=== PATIENT | female | born 1945 | race American Indian/Alaskan Native ===

== ENCOUNTER 2021-06-26 16:17 | Emergency (ER) | payer MEDICARE ==
--- NOTE | 2021-06-26 17:45 | Emergency Department Report ---
ED General Adult HPI - General Chief complaint: Recheck/Abnormal Lab/Rx Stated complaint: LOW HEMOGLOBIN Time Seen by Provider: 06/26/21 17:12 Source: patient Mode of arrival: Wheelchair Limitations: No Limitations - History of Present Illness Initial comments: Patient presents to the emergency department via the request of her physician who is Dr. Damon. Patient is a [facility] patient. She states that she was told her hemoglobin was low and was instructed to come to the emergency department immediately. Patient denies any shortness of breath with exertion and denies any blood in her stool. She does complain of being fatigued for the last couple of months. Patient denies chest pain or abdominal pain. -: Sudden Severity scale (0 -10): 0 Improves with: none Worsens with: none Associated Symptoms: denies other symptoms Treatments Prior to Arrival: none - Related Data Previous Rx's Medication Instructions Recorded Last Taken Type Ferrous Sulfate [Ferrous Sulfate 324 mg PO QDAY 30 Days tablet. 06/26/21 Unknown Rx 324 MG] Allergies Allergy/AdvReac Type Severity Reaction Status Date / Time No Known Allergies Allergy Unverified 06/26/21 16:25 ED Review of Systems ROS: Stated complaint: LOW HEMOGLOBIN Other details as noted in HPI Comment: All other systems reviewed and negative Constitutional: denies: chills, fever Eyes: denies: eye pain, eye discharge, vision change ENT: denies: ear pain, throat pain Respiratory: denies: cough, shortness of breath, wheezing Cardiovascular: denies: chest pain, palpitations Endocrine: no symptoms reported Gastrointestinal: denies: abdominal pain, nausea, diarrhea Genitourinary: denies: urgency, dysuria, discharge Musculoskeletal: denies: back pain, joint swelling, arthralgia Skin: denies: rash, lesions Neurological: denies: headache, weakness, paresthesias Psychiatric: denies: anxiety, depression Hematological/Lymphatic: denies: easy bleeding, easy bruising ED Past Medical Hx - Past Medical History Hx Arthritis: Yes Additional medical history: OSTEOPORESIS - Surgical History Additional Surgical History: HAND - Medications Home Medications: Home Medications Medication Instructions Recorded Confirmed Last Taken Type Ferrous Sulfate [Ferrous Sulfate 324 mg PO QDAY 30 Days tablet. 06/26/21 Unknown Rx 324 MG] ED Physical Exam - General Limitations: No Limitations General appearance: alert, in no apparent distress - Head Head exam: Present: atraumatic, normocephalic - Eye Eye exam: Present: normal appearance, PERRL, EOMI - ENT ENT exam: Present: mucous membranes moist - Neck Neck exam: Present: normal inspection - Respiratory Respiratory exam: Present: normal lung sounds bilaterally. Absent: respiratory distress - Cardiovascular Cardiovascular Exam: Present: regular rate, normal rhythm. Absent: systolic murmur, diastolic murmur, rubs, gallop - GI/Abdominal GI/Abdominal exam: Present: soft, normal bowel sounds. Absent: distended, tenderness - Extremities Exam Extremities exam: Present: normal inspection - Back Exam Back exam: Present: normal inspection - Neurological Exam Neurological exam: Present: alert, oriented X3, CN II-XII intact. Absent: motor sensory deficit - Psychiatric Psychiatric exam: Present: normal affect, normal mood - Skin Skin exam: Present: warm, dry, intact, normal color. Absent: rash ED Course Vital Signs 06/26/21 16:29 Temperature 99.6 F Pulse Rate 85 Respiratory 16 Rate Blood Pressure 127/79 O2 Sat by Pulse 100 Oximetry ED Medical Decision Making - Lab Data Result diagrams: 06/26/21 18:17 06/26/21 18:17 Lab Results 06/26/21 06/26/21 06/26/21 Range/Units 18:17 18:17 18:17 WBC 7.8 (4.5-11.0) K/mm3 RBC 4.16 (3.65-5.03) M/mm3 Hgb 7.7 L (10.1-14.3) gm/dl Hct 25.9 L (30.3-42.9) % MCV 62 L (79-97) fl MCH 18 L (28-32) pg MCHC 30 (30-34) % RDW 21.6 H (13.2-15.2) % Plt Count 893 H (140-440) K/mm3 PT 15.5 H (12.2-14.9) Sec. INR 1.11 (0.87-1.13) APTT 33.5 (24.2-36.6) Sec. Sodium 137 (137-145) mmol/L Potassium 4.4 (3.6-5.0) mmol/L Chloride 105.7 (98-107) mmol/L Carbon Dioxide 21 L (22-30) mmol/L Anion Gap 15 mmol/L BUN 17 (7-17) mg/dL Creatinine 0.9 (0.6-1.2) mg/dL Estimated GFR > 60 ml/min BUN/Creatinine Ratio 19 % Glucose 96 (65-100) mg/dL Calcium 8.7 (8.4-10.2) mg/dL Total Bilirubin < 0.20 (0.1-1.2) mg/dL AST 6 (5-40) units/L ALT < 5 L (7-56) units/L Alkaline Phosphatase 93 (35-129) units/L Total Protein 7.5 (6.3-8.2) g/dL Albumin 3.4 L (3.9-5) g/dL Albumin/Globulin Ratio 0.8 % Blood Type 06/26/ Range/Units 18:17 WBC (4.5-11.0) K/mm3 RBC (3.65-5.03) M/mm3 Hgb (10.1-14.3) gm/dl Hct (30.3-42.9) % MCV (79-97) fl MCH (28-32) pg MCHC (30-34) % RDW (13.2-15.2) % Plt Count (140-440) K/mm3 PT (12.2-14.9) Sec. INR (0.87-1.13) APTT (24.2-36.6) Sec. Sodium (137-145) mmol/L Potassium (3.6-5.0) mmol/L Chloride (98-107) mmol/L Carbon Dioxide (22-30) mmol/L Anion Gap mmol/L BUN (7-17) mg/dL Creatinine (0.6-1.2) mg/dL Estimated GFR ml/min BUN/Creatinine Ratio % Glucose (65-100) mg/dL Calcium (8.4-10.2) mg/dL Total Bilirubin (0.1-1.2) mg/dL AST (5-40) units/L ALT (7-56) units/L Alkaline Phosphatase (35-129) units/L Total Protein (6.3-8.2) g/dL Albumin (3.9-5) g/dL Albumin/Globulin Ratio % Blood Type O POSITIVE - Medical Decision Making Discussed results with patient and need to follow-up with her primary care physician at [facility] Critical care attestation.: If time is entered above; I have spent that time in minutes in the direct care of this critically ill patient, excluding procedure time. ED Disposition Clinical Impression: Microcytic anemia Disposition: 01 HOME / SELF CARE / HOMELESS Is pt being admited?: No Does the pt Need Aspirin: No Condition: Stable Instructions: Preventing Iron Deficiency Anemia, Adult Additional Instructions: Return if worse Prescriptions: Ferrous Sulfate [Ferrous Sulfate 324 MG] 324 mg PO QDAY 30 Days tablet. Referrals: [facility] [Primary Care Provider] - 3-5 Days [facility] [Provider Group] - 3-5 Days Time of Disposition: 19:41
[2021-06-26 19:03] LABS: Albumin 3.4 g/dL (3.9-5); BUN/Creatinine Ratio 19; Blood Urea Nitrogen 17 mg/dL (7-17); Calcium 8.7 mg/dL (8.4-10.2); Hemolysis Index 0
[2021-06-26 19:04] LABS: Alanine Aminotransferase < 5 units/L (7-56)
[2021-06-26 19:07] LABS: Hematocrit 25.9 % (30.3-42.9); Hemoglobin 7.7 gm/dl (10.1-14.3); Mean Corpuscular HGB Conc 30 % (30-34); Platelet Count 893 K/mm3 (140-440); Red Blood Count 4.16 M/mm3 (3.65-5.03)
[2021-06-26 19:13] LABS: Mean Corpuscular Volume 62 fl (79-97); Red Cell Distribution Width 21.6 % (13.2-15.2)
[2021-06-26 19:17] LABS: INR 1.11 (0.87-1.13); Partial Thromboplastin Time 33.5 Sec. (24.2-36.6)
[2021-06-26 19:57] VITALS: BP 175/93
[2021-06-26 20:17] LABS: Anisocytosis 1+; Total Cells Counted 100
[2021-06-26 20:18] LABS: Hypochromasia 1+; Schistocytes Rare
== END 2021-06-26 20:08 | disposition home or self-care (01) ==
LOC: ED 16:17
DX: D50.9 Iron deficiency anemia, unspecified (principal); M19.90 Unspecified osteoarthritis, unspecified site; M81.0 Age-related osteoporosis without current pathological fracture; Z98.890 Other specified postprocedural states
CPT/HCPCS: 36415; 80053; 85007; 85025; 85610; 85730; 86850; 86900; 86901; 99283

== ENCOUNTER 2021-07-20 18:51 | Inpatient (IN) | payer MEDICARE ==
[2021-07-20] MEDS ORDERED: SODIUM CHLORIDE 0.9% 1000 ML IV SOLN IV ONE (19:23)
[2021-07-20] MEDS ORDERED: ACETAMINOPHEN 650 MG RECT SUPP PR ONE (19:25)
[2021-07-20 19:47] LABS: Hematocrit 20.2 % (30.3-42.9); Hemoglobin 6.1 gm/dl (10.1-14.3); Mean Corpuscular HGB Conc 30 % (30-34); Platelet Count 615 K/mm3 (140-440); Red Blood Count 3.28 M/mm3 (3.65-5.03)
--- NOTE | 2021-07-20 19:47 | XRay Report ---
XR chest 1V ap INDICATION / CLINICAL INFORMATION: fever. COMPARISON: None available. FINDINGS: SUPPORT DEVICES: None. HEART /PULMONARY VASCULATURE: No significant abnormality. LUNGS / PLEURA: Diffuse increased interstitial opacities are present. There is mild patchy airspace o pacity within the left midlung. No sizable pleural effusion. No pneumothorax. ADDITIONAL FINDINGS: Dextroscoliosis of the thoracic spine noted. 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 No acute osseous findings. IMPRESSION: Patchy airspace opacity within the left midlung, suspicious for pneumonia. Signer Name: Stuart Millan MD Signed: 07/20/2021 7:43 PM Workstation Name: [id number]
[2021-07-20 20:00] LABS: Mean Corpuscular Volume 62 fl (79-97); Red Cell Distribution Width 20.6 % (13.2-15.2)
[2021-07-20] MEDS ORDERED: CEFEPIME/NS 1 GM/100 ML 1 GM/100 ML BAG IV ONE (20:06)
[2021-07-20 20:11] LABS: Albumin 2.6 g/dL (3.9-5); Blood Urea Nitrogen 11 mg/dL (7-17); Calcium 7.9 mg/dL (8.4-10.2); Hemolysis Index 0
[2021-07-20 20:14] LABS: Alanine Aminotransferase < 5 units/L (7-56); BUN/Creatinine Ratio 16; Bilirubin,Direct < 0.2 mg/dL (0-0.2)
--- NOTE | 2021-07-20 20:17 | Emergency Department Report ---
ED Altered Mental Status HPI - General Chief Complaint: Altered Mental Status Stated Complaint: POSS SEPSIS Time Seen by Provider: 07/20/21 19:18 Source: EMS Mode of arrival: Stretcher Limitations: Physical Limitation - History of Present Illness Initial Comments: 76-year-old female presents to ED with weakness and altered mental status. Per EMS family reported that patient has been lethargic and laying around for couple of days. Urinary incontinence is reported. EMS states patient had a fever of 102. Here in the ED patient is slow to respond. She denies any pain. She does report that she has had some urinary frequency the last few days. Patient states she lives with a friend. Unable to reach anyone at the phone numbers that have been provided. Patient reports she has received her COVID-19 vaccine. MD Complaint: altered mental status -: days(s) (2) Severity: Unable to Determine Consistency of Symptoms: constant Context: recent fever Associated Symptoms: fever/chills, incontinence. denies: chest pain, cough, headaches, nausea/vomiting, shortness of breath - Related Data Previous Rx's Medication Instructions Recorded Last Taken Type Ferrous Sulfate [Ferrous Sulfate 324 mg PO QDAY 30 Days tablet. 06/26/21 Unknown Rx 324 MG] Allergies Allergy/AdvReac Type Severity Reaction Status Date / Time No Known Allergies Allergy Verified 07/20/21 19:01 ED Review of Systems ROS: Stated complaint: POSS SEPSIS Other details as noted in HPI Comment: All other systems reviewed and negative Constitutional: fever, weakness Respiratory: denies: shortness of breath Cardiovascular: denies: chest pain Gastrointestinal: denies: abdominal pain, vomiting, diarrhea Genitourinary: frequency ED Past Medical Hx - Past Medical History Hx Hypertension: Yes Hx Arthritis: Yes Hx COPD: Yes Additional medical history: OSTEOPORESIS - Surgical History Past Surgical History?: Yes Additional Surgical History: HAND - Social History Smoking Status: Unknown if ever smoked Substance Use Type: None - Medications Home Medications: Home Medications Medication Instructions Recorded Confirmed Last Taken Type Ferrous Sulfate [Ferrous Sulfate 324 mg PO QDAY 30 Days tablet. 06/26/21 Unknown Rx 324 MG] ED Physical Exam - General Limitations: Physical Limitation General appearance: alert, in no apparent distress - Head Head exam: Present: atraumatic, normocephalic - Eye Eye exam: Present: normal appearance, EOMI - ENT ENT exam: Present: mucous membranes dry - Neck Neck exam: Present: normal inspection - Respiratory Respiratory exam: Present: normal lung sounds bilaterally. Absent: respiratory distress - Cardiovascular Cardiovascular Exam: Present: normal rhythm, tachycardia - GI/Abdominal GI/Abdominal exam: Present: soft. Absent: distended, tenderness - Extremities Exam Extremities exam: Present: normal inspection - Neurological Exam Neurological exam: Present: alert, oriented X3, other (Responses are slow). Absent: motor sensory deficit - Psychiatric Psychiatric exam: Present: normal affect, normal mood - Skin Skin exam: Present: warm, dry, intact, normal color ED Course Vital Signs 07/20/21 07/20/21 07/20/21 19:20 19:27 19:30 Temperature 103.0 F H Pulse Rate 115 H Respiratory 20 Rate Blood Pressure 138/78 132/74 Blood Pressure 138/78 [Right] O2 Sat by Pulse 100 100 100 Oximetry 07/20/21 07/20/21 07/20/21 19:45 20:00 20:15 Temperature Pulse Rate Respiratory Rate Blood Pressure 121/82 132/67 127/71 Blood Pressure [Right] O2 Sat by Pulse 98 99 99 Oximetry 07/20/21 07/20/21 07/20/21 20:30 20:45 21:00 Temperature Pulse Rate 113 H 109 H 108 H Respiratory 17 15 18 Rate Blood Pressure 126/75 119/68 110/63 Blood Pressure [Right] O2 Sat by Pulse 100 97 97 Oximetry 07/20/21 07/20/21 07/20/21 21:15 21:24 21:30 Temperature 98.9 F Pulse Rate 109 H 105 H Respiratory 12 19 Rate Blood Pressure 111/66 104/59 Blood Pressure [Right] O2 Sat by Pulse 100 97 Oximetry 07/20/21 21:45 Temperature Pulse Rate 105 H Respiratory 23 Rate Blood Pressure 104/58 Blood Pressure [Right] O2 Sat by Pulse 100 Oximetry - Consultations Consultation #1: 07/20/21 20:53 Spoke with [facility] on-call physician, Dr. Estephania Victor. States okay for patient to remain here at [facility] for admission. - Lab Data Result diagrams: 07/20/21 19:28 07/20/21 19:28 Lab Results 07/20/21 07/20/21 07/20/21 Range/Units 19:28 19:28 19:28 WBC 18.4 H (4.5-11.0) K/mm3 RBC 3.28 L (3.65-5.03) M/mm3 Hgb 6.1 L (10.1-14.3) gm/dl Hct 20.2 L (30.3-42.9) % MCV 62 L (79-97) fl MCH 19 L (28-32) pg MCHC 30 (30-34) % RDW 20.6 H (13.2-15.2) % Plt Count 615 H (140-440) K/mm3 Add Manual Diff Complete Total Counted 100 Seg Neutrophils % Lacquer Maker Lymphocytes % (Manual) 2.0 L (13.4-35.0) % Nucleated RBC % Not Reportable Seg Neutrophils # Man 18.0 H (1.8-7.7) K/mm3 Band Neutrophils # 0.0 K/mm3 Lymphocytes # (Manual) 0.4 L (1.2-5.4) K/mm3 Abs React Lymphs (Man) 0.0 K/mm3 Monocytes # (Manual) 0.0 (0.0-0.8) K/mm3 Eosinophils # (Manual) 0.0 (0.0-0.4) K/mm3 Basophils # (Manual) 0.0 (0.0-0.1) K/mm3 Metamyelocytes # 0.0 K/mm3 Myelocytes # 0.0 K/mm3 Promyelocytes # 0.0 K/mm3 Blast Cells # 0.0 K/mm3 WBC Morphology Not Reportable Hypersegmented Neuts Not Reportable Hyposegmented Neuts Not Reportable Hypogranular Neuts Not Reportable Smudge Cells Not Reportable Toxic Granulation Not Reportable Toxic Vacuolation Not Reportable Dohle Bodies Not Reportable Pelger-Huet Anomaly Not Reportable Bishop Rods Not Reportable Platelet Estimate Consistent w auto Clumped Platelets Not Reportable Plt Clumps, EDTA Not Reportable Large Platelets Not Reportable Giant Platelets Not Reportable Platelet Satelliting Not Reportable Plt Morphology Comment Not Reportable RBC Morphology Not Reportable Dimorphic RBCs Not Reportable Polychromasia Not Reportable Hypochromasia 2+ Poikilocytosis Not Reportable Anisocytosis 1+ Microcytosis 2+ Macrocytosis Not Reportable Spherocytes Not Reportable Pappenheimer Bodies Not Reportable Sickle Cells Not Reportable Target Cells 2+ Tear Drop Cells Rare Ovalocytes Not Reportable Helmet Cells Not Reportable Chance-Ainsworth Bodies Not Reportable [place] Rings Not Reportable Sophie Cells Not Reportable Bite Cells Not Reportable Crenated Cell Not Reportable Elliptocytes Not Reportable Acanthocytes (Spur) Not Reportable Rouleaux Not Reportable Hemoglobin C Crystals Not Reportable Schistocytes Not Reportable Malaria parasites Not Reportable Randolph Bodies Not Reportable Hem Pathologist Commnt No Sodium 132 L (137-145) mmol/L Potassium 3.1 L (3.6-5.0) mmol/L Chloride 101.7 (98-107) mmol/L Carbon Dioxide 17 L (22-30) mmol/L Anion Gap 16 mmol/L BUN 11 (7-17) mg/dL Creatinine 0.7 (0.6-1.2) mg/dL Estimated GFR > 60 ml/min BUN/Creatinine Ratio 16 % Glucose 117 H (65-100) mg/dL Lactic Acid 1.60 (0.7-2.0) mmol/L Calcium 7.9 L (8.4-10.2) mg/dL Total Bilirubin 0.30 (0.1-1.2) mg/dL Direct Bilirubin < 0.2 (0-0.2) mg/dL Indirect Bilirubin 0.1 mg/dL AST 6 (5-40) units/L ALT < 5 L (7-56) units/L Alkaline Phosphatase 86 (35-129) units/L Total Protein 6.0 L (6.3-8.2) g/dL Albumin 2.6 L (3.9-5) g/dL Albumin/Globulin Ratio 0.8 % Urine Color (Yellow) Urine Turbidity (Clear) Urine pH (5.0-7.0) Ur Specific [place] (1.003-1.030) Urine Protein (Negative) mg/dL Urine Glucose (UA) (Negative) mg/dL Urine Ketones (Negative) mg/dL Urine Blood (Negative) Urine Nitrite (Negative) Urine Bilirubin (Negative) Urine Urobilinogen (<2.0) mg/dL Ur Leukocyte Esterase (Negative) Urine WBC (Auto) (0.0-6.0) /HPF Urine RBC (Auto) (0.0-6.0) /HPF U Epithel Cells (Auto) (0-13.0) /HPF Urine Bacteria (Auto) (Negative) /HPF Urine Mucus /HPF Blood Type Antibody Screen Crossmatch 07/20/21 07/20/21 Range/Units 20:00 20:15 WBC (4.5-11.0) K/mm3 RBC (3.65-5.03) M/mm3 Hgb (10.1-14.3) gm/dl Hct (30.3-42.9) % MCV (79-97) fl MCH (28-32) pg MCHC (30-34) % RDW (13.2-15.2) % Plt Count (140-440) K/mm3 Add Manual Diff Total Counted Seg Neutrophils % Lymphocytes % (Manual) (13.4-35.0) % Nucleated RBC % Seg Neutrophils # Man (1.8-7.7) K/mm3 Band Neutrophils # K/mm3 Lymphocytes # (Manual) (1.2-5.4) K/mm3 Abs React Lymphs (Man) K/mm3 Monocytes # (Manual) (0.0-0.8) K/mm3 Eosinophils # (Manual) (0.0-0.4) K/mm3 Basophils # (Manual) (0.0-0.1) K/mm3 Metamyelocytes # K/mm3 Myelocytes # K/mm3 Promyelocytes # K/mm3 Blast Cells # K/mm3 WBC Morphology Hypersegmented Neuts Hyposegmented Neuts Hypogranular Neuts Smudge Cells Toxic Granulation Toxic Vacuolation Dohle Bodies Pelger-Huet Anomaly Bishop Rods Platelet Estimate Clumped Platelets Plt Clumps, EDTA Large Platelets Giant Platelets Platelet Satelliting Plt Morphology Comment RBC Morphology Dimorphic RBCs Polychromasia Hypochromasia Poikilocytosis Anisocytosis Microcytosis Macrocytosis Spherocytes Pappenheimer Bodies Sickle Cells Target Cells Tear Drop Cells Ovalocytes Helmet Cells Chance-Ainsworth Bodies [place] Rings Sophie Cells Bite Cells Crenated Cell Elliptocytes Acanthocytes (Spur) Rouleaux Hemoglobin C Crystals Schistocytes Malaria parasites Randolph Bodies Hem Pathologist Commnt Sodium (137-145) mmol/L Potassium (3.6-5.0) mmol/L Chloride (98-107) mmol/L Carbon Dioxide (22-30) mmol/L Anion Gap mmol/L BUN (7-17) mg/dL Creatinine (0.6-1.2) mg/dL Estimated GFR ml/min BUN/Creatinine Ratio % Glucose (65-100) mg/dL Lactic Acid (0.7-2.0) mmol/L Calcium (8.4-10.2) mg/dL Total Bilirubin (0.1-1.2) mg/dL Direct Bilirubin (0-0.2) mg/dL Indirect Bilirubin mg/dL AST (5-40) units/L ALT (7-56) units/L Alkaline Phosphatase (35-129) units/L Total Protein (6.3-8.2) g/dL Albumin (3.9-5) g/dL Albumin/Globulin Ratio % Urine Color Yellow (Yellow) Urine Turbidity Slightly-cloudy (Clear) Urine pH 6.0 (5.0-7.0) Ur Specific [place] 1.013 (1.003-1.030) Urine Protein 30 mg/dl (Negative) mg/dL Urine Glucose (UA) Neg (Negative) mg/dL Urine Ketones Neg (Negative) mg/dL Urine Blood Sm (Negative) Urine Nitrite Neg (Negative) Urine Bilirubin Neg (Negative) Urine Urobilinogen 2.0 (<2.0) mg/dL Ur Leukocyte Esterase Tr (Negative) Urine WBC (Auto) 35.0 H (0.0-6.0) /HPF Urine RBC (Auto) 2.0 (0.0-6.0) /HPF U Epithel Cells (Auto) 1.0 (0-13.0) /HPF Urine Bacteria (Auto) 2+ (Negative) /HPF Urine Mucus Few /HPF Blood Type O POSITIVE Antibody Screen Negative Crossmatch See Detail - Radiology Data Radiology results: report reviewed, image reviewed - Medical Decision Making 76-year-old female presents to ED with altered mental status and urinary incontinence at home. Patient found to be febrile with a temp of 103 here in the ED. Patient was initially very drowsy and lethargic, however after receiving some IV fluids her mental status did appear to improve. Patient was able to answer questions appropriately, stating that she has been having some urinary frequency over the past couple of days. Patient has leukocytosis with WBC of 18. Lactic acid is normal. UA shows evidence of UTI. Chest x-ray shows possible pneumonia. O2 sats are normal, patient is in no respiratory distress. Cultures drawn, cefepime given. Patient had an ED visit approximately 3 weeks ago she was instructed to come to the ER because blood work done by PCP showed that she was anemic. At that time patient had a hemoglobin of 7.7 and did not require any transfusion at that time. During that visit, patient denied any rectal bleeding. Today hemoglobin is 6.1. Type and screen ordered, no transfusion ordered at this time. Will defer to hospitalist team. Vital signs are stable. Patient will be admitted by hospitalist, Dr. Almanza, for further management. Patient is a [facility] patient, however I have spoken with the [facility] physician who states patient should stay here at [facility] for admission. - Differential Diagnosis UTI, dehydration, pneumonia Critical care attestation.: If time is entered above; I have spent that time in minutes in the direct care of this critically ill patient, excluding procedure time. ED Disposition Clinical Impression: UTI (urinary tract infection), Sepsis, Pneumonia, Acute encephalopathy, Hypokalemia, Anemia Disposition: ADMITTED INPATIENT Is pt being admited?: Yes Condition: Stable Instructions: Bacterial Pneumonia (ED) Time of Disposition: 21:24
[2021-07-20 20:29] LABS: Bacteria,Urine 2+ /HPF (Negative); Bilirubin,Urine NEG (Negative); Blood,Urine SM (Negative); Color,Urine Yellow (Yellow); Mucus,Urine FEW /HPF
[2021-07-20] MEDS ORDERED: POTASSIUM CHLORIDE ER 20 MEQ TAB PO ONE (20:54)
--- NOTE | 2021-07-20 22:23 | History and Physical Report ---
History of Present Illness Date of examination: 07/20/21 Date of admission: 07/20/21 Chief complaint: shortness of breath History of present illness: This is a 76-year-old female seen in ED at bedside. She presents to ED with weakness and altered mental status. Per EMS, family reported that patient has been lethargic and laying around for couple of days. Urinary incontinence is reported. EMS states patient had a fever of 102. On assessment, patient is awake appears mildly confused, was unable to get most of the pertinent information. she denies chest pain, nausea vomiting, and abdominal pain at this time of assessment. I reviewed medication record, history, and vital signs. Patient has UTI. Chest x-ray shows pneumonia. Patient started on antibiotics. Patient reports she has received her COVID-19 vaccine Past History Past Medical History: hypertension Past Surgical History: No surgical history Social history: lives with family. denies: smoking, alcohol abuse, prescription drug abuse, IV drug use, full code Medications and Allergies Allergies Allergy/AdvReac Type Severity Reaction Status Date / Time No Known Allergies Allergy Verified 07/20/21 19:01 Home Medications Medication Instructions Recorded Confirmed Last Taken Type Ferrous Sulfate [Ferrous Sulfate 324 mg PO QDAY 30 Days tablet. 06/26/21 Unknown Rx 324 MG] Review of Systems Constitutional: no fatigue, no weakness Ears, nose, mouth and throat: no epistaxis, no bleeding gums Cardiovascular: high blood pressure Respiratory: no congestion, no wheezing Gastrointestinal: no melena Rectal: no itching, no hemorrhoids Integumentary: no rash, no pruritis, no redness Psychiatric: disorientation Hematologic/Lymphatic: no easy bruising, no easy bleeding, no lymphadenopathy, no lymphedema Allergic/Immunologic: no urticaria Exam - Constitutional Vitals: Temp Pulse Resp BP Pulse Ox 98.9 F 105 H 23 104/58 100 07/20/21 21:24 07/20/21 21:45 07/20/21 21:45 07/20/21 21:45 07/20/21 21:45 General appearance: Present: no acute distress, well-nourished - EENT Eyes: Present: PERRL ENT: hearing intact, clear oral mucosa - Neck Neck: Present: supple, normal ROM - Respiratory Respiratory effort: normal Respiratory: bilateral: CTA - Cardiovascular Heart Sounds: Present: S1 & S2. Absent: rub, click - Extremities Extremities: pulses symmetrical, No edema Peripheral Pulses: within normal limits - Abdominal General gastrointestinal: Present: soft, non-tender, non-distended, normal bowel sounds Female genitourinary: Present: normal - Integumentary Integumentary: Present: clear, warm, dry - Musculoskeletal Musculoskeletal: gait normal, strength equal bilaterally - Psychiatric Psychiatric: appropriate mood/affect, intact judgment & insight, cooperative, other (Appears confused) - Neurologic Neurologic: CNII-XII intact, moves all extremities - Allied Health Allied health notes reviewed: nursing Results - Labs CBC & Chem 7: 07/20/21 19:28 07/20/21 19:28 Labs: Abnormal lab results 07/20/21 07/20/21 07/20/21 Range/Units 19:28 19:28 20:00 WBC 18.4 H (4.5-11.0) K/mm3 RBC 3.28 L (3.65-5.03) M/mm3 Hgb 6.1 L (10.1-14.3) gm/dl Hct 20.2 L (30.3-42.9) % MCV 62 L (79-97) fl MCH 19 L (28-32) pg RDW 20.6 H (13.2-15.2) % Plt Count 615 H (140-440) K/mm3 Sodium 132 L (137-145) mmol/L Potassium 3.1 L (3.6-5.0) mmol/L Carbon Dioxide 17 L (22-30) mmol/L Glucose 117 H (65-100) mg/dL Calcium 7.9 L (8.4-10.2) mg/dL ALT < 5 L (7-56) units/L Total Protein 6.0 L (6.3-8.2) g/dL Albumin 2.6 L (3.9-5) g/dL Urine WBC (Auto) 35.0 H (0.0-6.0) /HPF Assessment and Plan - Patient Problems (1) Acute encephalopathy Current Visit: No Status: Inactive Plan to address problem: Likely secondary to UTI Monitor mental status Safety and fall precaution at all time PT OT consult (2) Anemia Current Visit: No Status: Inactive Plan to address problem: Patient is typed and crossed for 1 unit Transfuse 1 unit of packed red blood cells Monitor H&H Iron and multivitamin supplement Occult stool rule out GI bleed (3) Hypokalemia Current Visit: No Status: Inactive Plan to address problem: Replace potassium Monitor electrolytes levels and replace as needed Check magnesium (4) Pneumonia Current Visit: No Status: Inactive Plan to address problem: Respiratory care Bronchodilator and oxygen supplement if needed Empiric antibiotic Blood culture x2 and urine culture (5) Sepsis Current Visit: No Status: Inactive Plan to address problem: Likely secondary to pneumonia and the UTI Patient is antibiotic Blood culture urine culture have been ordered Infectious disease consultedfollow-up with plan of care (6) UTI (urinary tract infection) Current Visit: No Status: Inactive Plan to address problem: Urine culture Empiric antibiotic (7) Leukocytosis (leucocytosis) Current Visit: Yes Status: Acute Plan to address problem: Monitor WBC Gentle IV hydration Blood culture in progress (8) DVT prophylaxis Current Visit: Yes Status: Acute Plan to address problem: lovenox
[2021-07-20] MEDS ORDERED: SODIUM CHLORIDE 0.9% 500 ML 500 ML IV ONE (22:33)
[2021-07-20] MEDS ORDERED: ALUM-MAG HYDROXIDE-SIMETHICONE 200-200-20MG/5ML ORAL LIQD 30 ML PO PRN (22:40)
[2021-07-20] MEDS ORDERED: HYDROmorphone 1 MG/1 ML INJ IV PRN (22:40)
[2021-07-20] MEDS ORDERED: NALOXONE 0.4 MG/1 ML INJ IV PRN (22:40)
[2021-07-20] MEDS ORDERED: SENNOSIDES 8.6 MG TAB PO PRN (22:40)
[2021-07-20] MEDS ORDERED: MAGNESIUM HYDROXIDE (MOM) ORAL LIQD UDC PO PRN (22:40)
[2021-07-20] MEDS ORDERED: ONDANSETRON 4 MG/2 ML INJ IV PRN (22:40)
[2021-07-20] MEDS ORDERED: oxyCODONE /ACETAMINOPHEN 5-325MG TAB PO PRN (22:40)
[2021-07-20] MEDS ORDERED: ACETAMINOPHEN 325 MG TAB PO PRN ×2 (22:40)
[2021-07-20] MEDS ORDERED: AZITHROMYCIN/NS 500 MG/250 ML 500 MG/250 ML BAG IV SCH (23:00)
[2021-07-20 23:33] LABS: Total Cells Counted 100
[2021-07-20 23:39] LABS: Anisocytosis 1+; Hypochromasia 2+
[2021-07-20 23:41] LABS: Platelet Estimate Consistent w Auto; Target Cells 2+; Tear Drop Cells Rare
[2021-07-21] MEDS ORDERED: SODIUM CHLORIDE 0.9% 500 ML 500 ML ONE (00:58)
[2021-07-21] MEDS ORDERED: SODIUM CHLORIDE 0.9% 500 ML 500 ML IV NR (08:11)
--- NOTE | 2021-07-21 08:17 | Progress Note ---
Assessment and Plan Assessment and plan: Sepsis. Patient meets criteria given the tachycardia, fever and diagnosis of pneumonia/UTI. Left lower lobe pneumonia. Chest x-ray reveals left-sided pneumonia. UTI. Toxic metabolic encephalopathy. Etiology secondary to above. Anemia. Etiology is unknown. Hypokalemia. 07/21/2021. Continue IV antibiotics and follow-up blood and urine cultures. We Will transfuse 2 units of PRBCs for anemia. Check iron studies, reticulocyte count and LDH. Check Hemoccult of stool. Replete potassium for hypokalemia. History Interval history: No new issues overnight Hospitalist Physical - Constitutional Vitals: Temp Pulse Resp BP Pulse Ox 98.1 F 89 16 149/85 100 07/21/21 04:20 07/21/21 04:30 07/21/21 04:30 07/21/21 04:30 07/21/21 04:30 General appearance: Present: no acute distress, well-nourished - EENT Eyes: Present: PERRL, EOM intact ENT: hearing intact, clear oral mucosa, dentition normal - Neck Neck: Present: supple, normal ROM - Respiratory Respiratory effort: normal Respiratory: bilateral: CTA - Cardiovascular Rhythm: regular Heart Sounds: Present: S1 & S2. Absent: gallop, rub - Extremities Extremities: no ischemia, No edema, Full ROM - Abdominal General gastrointestinal: soft, non-tender, non-distended, normal bowel sounds - Integumentary Integumentary: Present: clear, warm, dry - Neurologic Neurologic: CNII-XII intact, moves all extremities Results - Labs CBC & Chem 7: 07/20/21 19:28 07/20/21 19:28 Labs: Laboratory Last Values WBC 18.4 K/mm3 (4.5-11.0) H 07/20/21 19:28 RBC 3.28 M/mm3 (3.65-5.03) L 07/20/21 19:28 Hgb 6.1 gm/dl (10.1-14.3) L 07/20/21 19:28 Hct 20.2 % (30.3-42.9) L 07/20/21 19:28 MCV 62 fl (79-97) L 07/20/21 19:28 MCH 19 pg (28-32) L 07/20/21 19:28 MCHC 30 % (30-34) 07/20/21 19:28 RDW 20.6 % (13.2-15.2) H 07/20/21 19:28 Plt Count 615 K/mm3 (140-440) H 07/20/21 19:28 Add Manual Diff Complete 07/20/21 19:28 Total Counted 100 07/20/21 19:28 Seg Neutrophils % Bike Designer 07/20/21 19:28 Lymphocytes % (Manual) 2.0 % (13.4-35.0) L 07/20/21 19:28 Nucleated RBC % Not Reportable 07/20/21 19:28 Seg Neutrophils # Man 18.0 K/mm3 (1.8-7.7) H 07/20/21 19:28 Band Neutrophils # 0.0 K/mm3 07/20/21 19:28 Lymphocytes # (Manual) 0.4 K/mm3 (1.2-5.4) L 07/20/21 19:28 Abs React Lymphs (Man) 0.0 K/mm3 07/20/21 19:28 Monocytes # (Manual) 0.0 K/mm3 (0.0-0.8) 07/20/21 19:28 Eosinophils # (Manual) 0.0 K/mm3 (0.0-0.4) 07/20/21 19:28 Basophils # (Manual) 0.0 K/mm3 (0.0-0.1) 07/20/21 19:28 Metamyelocytes # 0.0 K/mm3 07/20/21 19:28 Myelocytes # 0.0 K/mm3 07/20/21 19:28 Promyelocytes # 0.0 K/mm3 07/20/21 19:28 Blast Cells # 0.0 K/mm3 07/20/21 19:28 WBC Morphology Not Reportable 07/20/21 19:28 Hypersegmented Neuts Not Reportable 07/20/21 19:28 Hyposegmented Neuts Not Reportable 07/20/21 19:28 Hypogranular Neuts Not Reportable 07/20/21 19:28 Smudge Cells Not Reportable 07/20/21 19:28 Toxic Granulation Not Reportable 07/20/21 19:28 Toxic Vacuolation Not Reportable 07/20/21 19:28 Dohle Bodies Not Reportable 07/20/21 19:28 Pelger-Huet Anomaly Not Reportable 07/20/21 19:28 [place] Rods Not Reportable 07/20/21 19:28 Platelet Estimate Consistent w auto 07/20/21 19:28 Clumped Platelets Not Reportable 07/20/21 19:28 Plt Clumps, EDTA Not Reportable 07/20/21 19:28 Large Platelets Not Reportable 07/20/21 19:28 Giant Platelets Not Reportable 07/20/21 19:28 Platelet Satelliting Not Reportable 07/20/21 19:28 Plt Morphology Comment Not Reportable 07/20/21 19:28 RBC Morphology Not Reportable 07/20/21 19:28 Dimorphic RBCs Not Reportable 07/20/21 19:28 Polychromasia Not Reportable 07/20/21 19:28 Hypochromasia 2+ 07/20/21 19:28 Poikilocytosis Not Reportable 07/20/21 19:28 Anisocytosis 1+ 07/20/21 19:28 Microcytosis 2+ 07/20/21 19:28 Macrocytosis Not Reportable 07/20/21 19:28 Spherocytes Not Reportable 07/20/21 19:28 Pappenheimer Bodies Not Reportable 07/20/21 19:28 Sickle Cells Not Reportable 07/20/21 19:28 Target Cells 2+ 07/20/21 19:28 Tear Drop Cells Rare 07/20/21 19:28 Ovalocytes Not Reportable 07/20/21 19:28 Helmet Cells Not Reportable 07/20/21 19:28 [place] Bodies Not Reportable 07/20/21 19:28 [place] Rings Not Reportable 07/20/21 19:28 [place] Cells Not Reportable 07/20/21 19:28 Bite Cells Not Reportable 07/20/21 19:28 Crenated Cell Not Reportable 07/20/21 19:28 Elliptocytes Not Reportable 07/20/21 19:28 Acanthocytes (Spur) Not Reportable 07/20/21 19:28 Rouleaux Not Reportable 07/20/21 19:28 Hemoglobin C Crystals Not Reportable 07/20/21 19:28 Schistocytes Not Reportable 07/20/21 19:28 Malaria parasites Not Reportable 07/20/21 19:28 Randolph Bodies Not Reportable 07/20/21 19:28 Hem Pathologist Commnt No 07/20/21 19:28 Sodium 132 mmol/L (137-145) L 07/20/21 19:28 Potassium 3.1 mmol/L (3.6-5.0) L 07/20/21 19:28 Chloride 101.7 mmol/L (98-107) 07/20/21 19:28 Carbon Dioxide 17 mmol/L (22-30) L 07/20/21 19:28 Anion Gap 16 mmol/L 07/20/21 19:28 BUN 11 mg/dL (7-17) 07/20/21 19:28 Creatinine 0.7 mg/dL (0.6-1.2) 07/20/21 19:28 Estimated GFR > 60 ml/min 07/20/21 19: BUN/Creatinine Ratio 16 % 07/20/21 19:28 Glucose 117 mg/dL (65-100) H 07/20/21 19:28 Hemoglobin A1c 4.6 % (4-6) 07/20/21 19:28 Lactic Acid 1.60 mmol/L (0.7-2.0) 07/20/21 19:28 Calcium 7.9 mg/dL (8.4-10.2) L 07/20/21 19:28 Total Bilirubin 0.30 mg/dL (0.1-1.2) 07/20/21 19:28 Direct Bilirubin < 0.2 mg/dL (0-0.2) 07/20/21 19:28 Indirect Bilirubin 0.1 mg/dL 07/20/21 19:28 AST 6 units/L (5-40) 07/20/21 19:28 ALT < 5 units/L (7-56) L 07/20/21 19:28 Alkaline Phosphatase 86 units/L (35-129) 07/20/21 19:28 Total Protein 6.0 g/dL (6.3-8.2) L 07/20/21 19:28 Albumin 2.6 g/dL (3.9-5) L 07/20/21 19:28 Albumin/Globulin Ratio 0.8 % 07/20/21 19:28 Urine Color Yellow (Yellow) 07/20/21 20:00 Urine Turbidity Slightly-cloudy (Clear) 07/20/21 20:00 Urine pH 6.0 (5.0-7.0) 07/20/21 20:00 Ur Specific [place] 1.013 (1.003-1.030) 07/20/21 20:00 Urine Protein 30 mg/dl mg/dL (Negative) 07/20/21 20:00 Urine Glucose (UA) Neg mg/dL (Negative) 07/20/21 20:00 Urine Ketones Neg mg/dL (Negative) 07/20/21 20:00 Urine Blood Sm (Negative) 07/20/21 20:00 Urine Nitrite Neg (Negative) 07/20/21 20:00 Urine Bilirubin Neg (Negative) 07/20/21 20:00 Urine Urobilinogen 2.0 mg/dL (<2.0) 07/20/21 20:00 Ur Leukocyte Esterase Tr (Negative) 07/20/21 20:00 Urine WBC (Auto) 35.0 /HPF (0.0-6.0) H 07/20/21 20:00 Urine RBC (Auto) 2.0 /HPF (0.0-6.0) 07/20/21 20:00 U Epithel Cells (Auto) 1.0 /HPF (0-13.0) 07/20/21 20:00 Urine Bacteria (Auto) 2+ /HPF (Negative) 07/20/21 20:00 Urine Mucus Few /HPF 07/20/21 20:00 Blood Type O POSITIVE 07/20/21 20:15 Antibody Screen Negative 07/20/21 20:15 Crossmatch See Detail 07/20/21 20:15 Microbiology: Microbiology 07/20/21 19:28 Peripheral/Venous Blood Culture - Preliminary Culture in Progress 07/20/21 19:28 Peripheral/Venous Blood Culture - Preliminary Culture in Progress Active Medications - Current Medications Current Medications: Generic Name Dose Route Start Last Admin Trade Name Freq PRN Reason Stop Dose Admin Acetaminophen 650 mg 07/20/21 22:40 Acetaminophen 325 Mg Tab PO Q4H PRN Pain MILD(1-3)/Fever >100.5/CHRISTIANSEN Al Hydrox/Mg Hydrox/Simethicone 30 ml 07/20/21 22:40 Alum-Mag Hydroxide-Simethicone [id number]/5ml Oral Liqd 30 Ml PO Q4H PRN Indigestion Famotidine 20 mg 07/21/21 10:00 Famotidine 20 Mg/2 Ml Inj IV BID [facility] Ferrous Sulfate 325 mg 07/21/21 10:00 Ferrous Sulfate 325 Mg Tab PO QDAY [facility] Heparin Sodium (Porcine) 5,000 unit 07/21/21 10:00 Heparin 5,000 Unit/1 Ml Vial SUB-Q Q12HR [facility] Hydralazine HCl 5 mg 07/21/21 06:26 Hydralazine 20 Mg/1 Ml Inj IV Q4H PRN Hypertension Hydromorphone HCl 0.25 mg 07/20/21 22:40 Hydromorphone 1 Mg/1 Ml Inj IV Q4H PRN Pain, Moderate (4-6) Ceftriaxone Sodium 1 gm in 50 mls @ 100 mls/hr 07/21/21 10:00 Rocephin/Ns 1 Gm/50 Ml IV 07/25/21 10:29 Q24HR [facility] Protocol Sodium Chloride 1,000 mls @ 75 mls/hr 07/20/21 22:45 Nacl 0.9% 1000 Ml IV DIRECT [facility] Azithromycin 500 mg in 250 mls @ 250 mls/hr 07/21/21 22:00 Zithromax/Ns IV 07/24/21 22:59 QHS [facility] Sodium Chloride 500 mls @ 0 mls/hr 07/21/21 08:11 Nacl 0.9% 500 Ml IV 07/21/21 08:12 ONCE ONE As Directed Magnesium Hydroxide 30 ml 07/20/21 22:40 Magnesium Hydroxide (Mom) Oral Liqd Udc PO Q4H PRN Constipation Multivitamins 1 each 07/21/21 10:00 Multivitamins ,Therapeutic Tab PO QDAY [facility] Naloxone HCl 0.1 mg 07/20/21 22:40 Naloxone 0.4 Mg/1 Ml Inj IV Q2MIN PRN Res Rate </= 8 or 02 SAT < 92% Ondansetron HCl 4 mg 07/20/21 22:40 Ondansetron 4 Mg/2 Ml Inj IV Q8H PRN Nausea And Vomiting Oxycodone/Acetaminophen 1 tab 07/20/21 22:40 Oxycodone /Acetaminophen 5-325mg Tab PO Q6H PRN Pain, Moderate (4-6) Senna 8.6 mg 07/20/21 22:40 Sennosides 8.6 Mg Tab PO Q12HR PRN Constipation Sodium Chloride 10 ml 07/21/21 10:00 Sodium Chloride 0.9% 10 Ml Flush Syringe IV BID DIEGO Sodium Chloride 10 ml 07/20/21 22:40 Sodium Chloride 0.9% 10 Ml Flush Syringe IV PRN PRN LINE FLUSH
[2021-07-21] MEDS: FAMOTIDINE 20 MG/2 ML INJ IV SCH ×2 (11:17→23:01)
[2021-07-21] MEDS: FERROUS SULFATE 325 MG TAB PO SCH (11:18)
[2021-07-21] MEDS: HEPARIN 5,000 UNIT/1 ML VIAL SUB-Q SCH ×2 (11:18→23:01)
[2021-07-21] MEDS: MULTIVITAMINS ,THERAPEUTIC TAB PO SCH (11:18)
[2021-07-21] MEDS: cefTRIAXone/NS 1 GM/50 ML 1 GM/50 ML BAG IV SCH (11:18)
[2021-07-21 13:38] LABS: Blood Urea Nitrogen 11 mg/dL (7-17); Calcium 7.7 mg/dL (8.4-10.2); Hemolysis Index 1
[2021-07-21 13:40] LABS: BUN/Creatinine Ratio 22
[2021-07-21 13:59] LABS: Iron 8 ug/dL (37-170); Total Iron Binding Capacity 185 mcg/dL (250-450)
[2021-07-21] MEDS: AZITHROMYCIN/NS 500 MG/250 ML 500 MG/250 ML BAG IV SCH (23:01)
[2021-07-21 23:12] LABS: Mean Corpuscular HGB Conc 29 % (30-34); Mean Corpuscular Volume 72 fl (79-97); Platelet Count 482 K/mm3 (140-440); Red Blood Count 4.36 M/mm3 (3.65-5.03)
[2021-07-21 23:20] LABS: Hematocrit 31.3 % (30.3-42.9); Hemoglobin 9.1 gm/dl (10.1-14.3); Red Cell Distribution Width 28.1 % (13.2-15.2)
[2021-07-22] MEDS: SODIUM CHLORIDE 0.9% 1000 ML 1,000 ML IV SCH ×2 (00:40→22:32)
[2021-07-22 06:36] LABS: Mean Corpuscular HGB Conc 28 % (30-34); Mean Corpuscular Volume 72 fl (79-97); Platelet Count 473 K/mm3 (140-440); Red Blood Count 4.33 M/mm3 (3.65-5.03)
[2021-07-22 06:37] LABS: Hematocrit 31.2 % (30.3-42.9); Hemoglobin 8.7 gm/dl (10.1-14.3); Red Cell Distribution Width 27.7 % (13.2-15.2)
[2021-07-22] MEDS ORDERED: FAMOTIDINE 20 MG TAB PO SCH (10:00)
[2021-07-22] MEDS: FERROUS SULFATE 325 MG TAB PO SCH ×3 (10:19→20:59)
[2021-07-22] MEDS: FAMOTIDINE 10 MG TAB PO SCH ×2 (10:19→22:18)
[2021-07-22] MEDS: MULTIVITAMINS ,THERAPEUTIC TAB PO SCH (10:19)
[2021-07-22] MEDS: HEPARIN 5,000 UNIT/1 ML VIAL SUB-Q SCH ×2 (10:20→22:18)
[2021-07-22] MEDS: SODIUM BICARBONATE 650 MG TAB PO SCH ×2 (10:20→22:18)
[2021-07-22] MEDS: cefTRIAXone/NS 1 GM/50 ML 1 GM/50 ML BAG IV SCH (10:21)
[2021-07-22] MEDS ORDERED: POTASSIUM PHOSPHATE 45 MMOL in SODIUM CHLORIDE 0.9% 500 ML 500 ML IV ONE (10:30)
--- NOTE | 2021-07-22 10:36 | Progress Note ---
Assessment and Plan Assessment and plan: This is a 76-year-old female seen in ED at bedside. She presents to ED with weakness and altered mental status. Per EMS, family reported that patient has been lethargic and laying around for couple of days. Urinary incontinence is reported. EMS states patient had a fever of 102. On assessment, patient is awake appears mildly confused, was unable to get most of the pertinent information. she denies chest pain, nausea vomiting, and abdominal pain at this time of assessment. I reviewed medication record, history, and vital signs. Patient has UTI. Chest x-ray shows pneumonia. Patient started on antibiotics. Patient reports she has received her COVID-19 vaccine Sepsis. Patient meets criteria given the tachycardia, fever and diagnosis of pneumonia/UTI. Left lower lobe pneumonia. Chest x-ray reveals left-sided pneumonia. Acute cystitis secondary to E. coli Toxic metabolic encephalopathy. Etiology secondary to above. Anemia. Etiology is unknown. Hypokalemia. 07/21/2021. Continue IV antibiotics and follow-up blood and urine cultures. We Will transfuse 2 units of PRBCs for anemia. Check iron studies, reticulocyte count and LDH. Check Hemoccult of stool. Replete potassium for hypokalemia. 07/22: Patient is awake alert bit confused hemoglobin is improved posttransfusi on labs indicative of hemolysis although will recommend an outpatient GI evaluation considering the degree of blood loss. No rectal bleed reported by staff. Will replace potassium and phosphorus. And anticipate discharge in a.m.. UTI/acute cystitis secondary to E. coli which is pansensitive. Will change to Levaquin today for better management. Plan for discharge in a.m. discussed with case management History Interval history: Patient seen and examined much more awake today based on nursing report interactive a bit confused no new complaint Hospitalist Physical - Physical exam Narrative exam: General appearance: Present: no acute distress, well-nourished - EENT Eyes: Present: PERRL, EOM intact ENT: hearing intact, clear oral mucosa, dentition normal - Neck Neck: Present: supple, normal ROM - Respiratory Respiratory effort: normal Respiratory: bilateral: CTA - Cardiovascular Rhythm: regular Heart Sounds: Present: S1 & S2. Absent: gallop, rub - Extremities Extremities: no ischemia, No edema, Full ROM - Abdominal General gastrointestinal: soft, non-tender, non-distended, normal bowel sounds - Integumentary Integumentary: Present: clear, warm, dry - Neurologic Neurologic: CNII-XII intact, moves all extremities - Constitutional Vitals: Temp Pulse Resp BP Pulse Ox 98.0 F 88 20 158/96 97 07/22/21 04:51 07/22/21 04:51 07/22/21 04:51 07/22/21 04:51 07/22/21 04:51 General appearance: Present: no acute distress, well-nourished Results - Labs CBC & Chem 7: 07/22/21 06:18 07/21/21 12:56 Labs: Laboratory Last Values WBC 14.8 K/mm3 (4.5-11.0) H 07/22/21 06:18 RBC 4.33 M/mm3 (3.65-5.03) 07/22/21 06:18 Hgb 8.7 gm/dl (10.1-14.3) L 07/22/21 06:18 Hct 31.2 % (30.3-42.9) 07/22/21 06:18 MCV 72 fl (79-97) L 07/22/21 06:18 MCH 20 pg (28-32) L 07/22/21 06:18 MCHC 28 % (30-34) L 07/22/21 06:18 RDW 27.7 % (13.2-15.2) H 07/22/21 06:18 Plt Count 473 K/mm3 (140-440) H 07/22/21 06:18 Add Manual Diff Complete 07/20/21 19:28 Total Counted 100 07/20/21 19:28 Seg Neutrophils % Slitter Operator 07/20/21 19:28 Lymphocytes % (Manual) 2.0 % (13.4-35.0) L 07/20/21 19:28 Nucleated RBC % Not Reportable 07/20/21 19:28 Seg Neutrophils # Man 18.0 K/mm3 (1.8-7.7) H 07/20/21 19:28 Band Neutrophils # 0.0 K/mm3 07/20/21 19:28 Lymphocytes # (Manual) 0.4 K/mm3 (1.2-5.4) L 07/20/21 19:28 Abs React Lymphs (Man) 0.0 K/mm3 07/20/21 19:28 Monocytes # (Manual) 0.0 K/mm3 (0.0-0.8) 07/20/21 19:28 Eosinophils # (Manual) 0.0 K/mm3 (0.0-0.4) 07/20/21 19:28 Basophils # (Manual) 0.0 K/mm3 (0.0-0.1) 07/20/21 19:28 Metamyelocytes # 0.0 K/mm3 07/20/21 19:28 Myelocytes # 0.0 K/mm3 07/20/21 19:28 Promyelocytes # 0.0 K/mm3 07/20/21 19:28 Blast Cells # 0.0 K/mm3 07/20/21 19:28 WBC Morphology Not Reportable 07/20/21 19:28 Hypersegmented Neuts Not Reportable 07/20/21 19:28 Hyposegmented Neuts Not Reportable 07/20/21 19:28 Hypogranular Neuts Not Reportable 07/20/21 19:28 Smudge Cells Not Reportable 07/20/21 19:28 Toxic Granulation Not Reportable 07/20/21 19:28 Toxic Vacuolation Not Reportable 07/20/21 19:28 Dohle Bodies Not Reportable 07/20/21 19:28 Pelger-Huet Anomaly Not Reportable 07/20/21 19:28 Bishop Rods Not Reportable 07/20/21 19:28 Platelet Estimate Consistent w auto 07/20/21 19:28 Clumped Platelets Not Reportable 07/20/21 19:28 Plt Clumps, EDTA Not Reportable 07/20/21 19:28 Large Platelets Not Reportable 07/20/21 19:28 Giant Platelets Not Reportable 07/20/21 19:28 Platelet Satelliting Not Reportable 07/20/21 19:28 Plt Morphology Comment Not Reportable 07/20/21 19:28 RBC Morphology Not Reportable 07/20/21 19:28 Dimorphic RBCs Not Reportable 07/20/21 19:28 Polychromasia Not Reportable 07/20/21 19:28 Hypochromasia 2+ 07/20/21 19:28 Poikilocytosis Not Reportable 07/20/21 19:28 Anisocytosis 1+ 07/20/21 19:28 Microcytosis 2+ 07/20/21 19:28 Macrocytosis Not Reportable 07/20/21 19:28 Spherocytes Not Reportable 07/20/21 19:28 Pappenheimer Bodies Not Reportable 07/20/21 19:28 Sickle Cells Not Reportable 07/20/21 19:28 Target Cells 2+ 07/20/21 19:28 Tear Drop Cells Rare 07/20/21 19:28 Ovalocytes Not Reportable 07/20/21 19:28 Helmet Cells Not Reportable 07/20/21 19:28 Chance-[place] Bodies Not Reportable 07/20/21 19:28 [place] Rings Not Reportable 07/20/21 19:28 [place] Cells Not Reportable 07/20/21 19:28 Bite Cells Not Reportable 07/20/21 19:28 Crenated Cell Not Reportable 07/20/21 19:28 Elliptocytes Not Reportable 07/20/21 19:28 Acanthocytes (Spur) Not Reportable 07/20/21 19:28 Rouleaux Not Reportable 07/20/21 19:28 Hemoglobin C Crystals Not Reportable 07/20/21 19:28 Schistocytes Not Reportable 07/20/21 19:28 Malaria parasites Not Reportable 07/20/21 19:28 Percent Retic 0.98 % (0.78-2.58) 07/21/21 12:56 Randolph Bodies Not Reportable 07/20/21 19:28 Hem Pathologist Commnt No 07/20/21 19:28 Sodium 135 mmol/L (137-145) L 07/21/21 12:56 Potassium 3.7 mmol/L (3.6-5.0) 07/21/21 12:56 Chloride 107.1 mmol/L (98-107) H 07/21/21 12:56 Carbon Dioxide 17 mmol/L (22-30) L 07/21/21 12:56 Anion Gap 15 mmol/L 07/21/21 12:56 BUN 11 mg/dL (7-17) 07/21/21 12:56 Creatinine 0.5 mg/dL (0.6-1.2) L 07/21/21 12:56 Estimated GFR > 60 ml/min 07/21/21 12:56 BUN/Creatinine Ratio 22 % 07/21/21 12:56 Glucose 138 mg/dL (65-100) H 07/21/21 12:56 Hemoglobin A1c 4.6 % (4-6) 07/20/21 19:28 Lactic Acid 1.60 mmol/L (0.7-2.0) 07/20/21 19:28 Calcium 7.7 mg/dL (8.4-10.2) L 07/21/21 12:56 Phosphorus 1.90 mg/dL (2.5-4.5) L 07/21/21 12:56 Magnesium 1.90 mg/dL (1.7-2.3) 07/21/21 12:56 Iron 8 ug/dL (37-170) L 07/21/21 12:56 TIBC 185 mcg/dL (250-450) L 07/21/21 12:56 Total Bilirubin 0.30 mg/dL (0.1-1.2) 07/20/21 19:28 Direct Bilirubin < 0.2 mg/dL (0-0.2) 07/20/21 19:28 Indirect Bilirubin 0.1 mg/dL 07/20/21 19:28 AST 6 units/L (5-40) 07/20/21 19:28 ALT < 5 units/L (7-56) L 07/20/21 19:28 Alkaline Phosphatase 86 units/L (35-129) 07/20/21 19:28 Lactate Dehydrogenase 198 units/L (91-180) H 07/21/21 12:56 Total Protein 6.0 g/dL (6.3-8.2) L 07/20/21 19:28 Albumin 2.6 g/dL (3.9-5) L 07/20/21 19:28 Albumin/Globulin Ratio 0.8 % 07/20/21 19:28 Vitamin B12 412.3 pg/mL (211-911) 07/21/21 12:56 Folate 5.27 ng/mL (7.3-26.0) L 07/21/21 12:56 Urine Color Yellow (Yellow) 07/20/21 20:00 Urine Turbidity Slightly-cloudy (Clear) 07/20/21 20:00 Urine pH 6.0 (5.0-7.0) 07/20/21 20:00 Ur Specific [place] 1.013 (1.003-1.030) 07/20/21 20:00 Urine Protein 30 mg/dl mg/dL (Negative) 07/20/21 20:00 Urine Glucose (UA) Neg mg/dL (Negative) 07/20/21 20:00 Urine Ketones Neg mg/dL (Negative) 07/20/21 20:00 Urine Blood Sm (Negative) 07/20/21 20:00 Urine Nitrite Neg (Negative) 07/20/21 20:00 Urine Bilirubin Neg (Negative) 07/20/21 20:00 Urine Urobilinogen 2.0 mg/dL (<2.0) 07/20/21 20:00 Ur Leukocyte Esterase Tr (Negative) 07/20/21 20:00 Urine WBC (Auto) 35.0 /HPF (0.0-6.0) H 07/20/21 20:00 Urine RBC (Auto) 2.0 /HPF (0.0-6.0) 07/20/21 20:00 U Epithel Cells (Auto) 1.0 /HPF (0-13.0) 07/20/21 20:00 Urine Bacteria (Auto) 2+ /HPF (Negative) 07/20/21 20:00 Urine Mucus Few /HPF 07/20/21 20:00 Blood Type O POSITIVE 07/20/21 20:15 Antibody Screen Negative 07/20/21 20:15 Crossmatch See Detail 07/20/21 20:15 Microbiology: Microbiology 07/20/21 20:00 Urine,Catheterized - Straight Catheter Urine Culture - Final Escherichia Coli 07/20/21 19:28 Peripheral/Venous Blood Culture - Preliminary 07/20/21 19:28 Peripheral/Venous Blood Culture - Preliminary [place]/IV: Voiding Method External Female Catheter Active Medications - Current Medications Current Medications: Generic Name Dose Route Start Last Admin Trade Name Freq PRN Reason Stop Dose Admin Acetaminophen 650 mg 07/20/21 22:40 Acetaminophen 325 Mg Tab PO Q4H PRN Pain MILD(1-3)/Fever >100.5/CHRISTIANSEN Al Hydrox/Mg Hydrox/Simethicone 30 ml 07/20/21 22:40 Alum-Mag Hydroxide-Simethicone [id number]/5ml Oral Liqd 30 Ml PO Q4H PRN Indigestion Famotidine 10 mg 07/22/21 10:00 07/22/21 10:19 Famotidine 10 Mg Tab PO 10 mg BID DIEGO Administration Ferrous Sulfate 325 mg 07/21/21 10:00 07/22/21 10:19 Ferrous Sulfate 325 Mg Tab PO 325 mg QDAY DIEGO Administration Heparin Sodium (Porcine) 5,000 unit 07/21/21 10:00 07/22/21 10:20 Heparin 5,000 Unit/1 Ml Vial SUB-Q 5,000 unit Q12HR DIEGO Administration Hydralazine HCl 5 mg 07/21/21 06:26 Hydralazine 20 Mg/1 Ml Inj IV Q4H PRN Hypertension Hydromorphone HCl 0.25 mg 07/20/21 22:40 Hydromorphone 1 Mg/1 Ml Inj IV Q4H PRN Pain, Moderate (4-6) Ceftriaxone Sodium 1 gm in 50 mls @ 100 mls/hr 07/21/21 10:00 07/22/21 10:21 Rocephin/Ns 1 Gm/50 Ml IV 100 mls/hr Q24HR DIEGO Administration Protocol Sodium Chloride 1,000 mls @ 75 mls/hr 07/20/21 22:45 07/22/21 00:40 Nacl 0.9% 1000 Ml IV 75 mls/hr DIRECT DIEGO Administration Azithromycin 500 mg in 250 mls @ 250 mls/hr 07/21/21 22:00 07/21/21 23:01 Zithromax/Ns IV 07/24/21 22:59 250 mls/hr QHS DIEGO Administration Potassium Phosphate 45 mmol/ 515 mls @ 85 mls/hr 07/22/21 10:30 07/22/21 10:22 Sodium Chloride IV 07/22/21 16:33 85 mls/hr ONCE ONE Administration Magnesium Hydroxide 30 ml 07/20/21 22:40 Magnesium Hydroxide (Mom) Oral Liqd Udc PO Q4H PRN Constipation Multivitamins 1 each 07/21/21 10:00 07/22/21 10:19 Multivitamins ,Therapeutic Tab PO 1 each QDAY DIEGO Administration Naloxone HCl 0.1 mg 07/20/21 22:40 Naloxone 0.4 Mg/1 Ml Inj IV Q2MIN PRN Res Rate </= 8 or 02 SAT < 92% Ondansetron HCl 4 mg 07/20/21 22:40 Ondansetron 4 Mg/2 Ml Inj IV Q8H PRN Nausea And Vomiting Oxycodone/Acetaminophen 1 tab 07/20/21 22:40 07/21/21 12:34 Oxycodone /Acetaminophen 5-325mg Tab PO 1 tab Q6H PRN Administration Pain, Moderate (4-6) Senna 8.6 mg 07/20/21 22:40 Sennosides 8.6 Mg Tab PO Q12HR PRN Constipation Sodium Bicarbonate 650 mg 07/22/21 10:00 07/22/21 10:20 Sodium Bicarbonate 650 Mg Tab PO 650 mg BID DIEGO Administration Sodium Chloride 10 ml 07/21/21 10:00 07/22/21 10:19 Sodium Chloride 0.9% 10 Ml Flush Syringe IV 10 ml BID DIEGO Administration Sodium Chloride 10 ml 07/20/21 22:40 Sodium Chloride 0.9% 10 Ml Flush Syringe IV PRN PRN LINE FLUSH
[2021-07-22] MEDS: hydrALAZINE 20 MG/1 ML INJ IV PRN (19:57)
[2021-07-22] MEDS: AZITHROMYCIN/NS 500 MG/250 ML 500 MG/250 ML BAG IV SCH (22:18)
[2021-07-23] MEDS: hydrALAZINE 20 MG/1 ML INJ IV PRN (07:11)
[2021-07-23 08:12] LABS: Mean Corpuscular HGB Conc 29 % (30-34); Platelet Count 509 K/mm3 (140-440); Red Blood Count 4.73 M/mm3 (3.65-5.03)
[2021-07-23 08:18] LABS: Hematocrit 32.7 % (30.3-42.9); Hemoglobin 9.6 gm/dl (10.1-14.3); Mean Corpuscular Volume 69 fl (79-97); Red Cell Distribution Width 28.5 % (13.2-15.2)
[2021-07-23 08:38] LABS: Blood Urea Nitrogen 9 mg/dL (7-17); Hemolysis Index 1
[2021-07-23 08:39] LABS: BUN/Creatinine Ratio 15
[2021-07-23] MEDS: FERROUS SULFATE 325 MG TAB PO SCH ×2 (09:32→13:23)
[2021-07-23] MEDS: SODIUM BICARBONATE 650 MG TAB PO SCH (09:33)
[2021-07-23] MEDS: FAMOTIDINE 10 MG TAB PO SCH (09:33)
[2021-07-23] MEDS: MULTIVITAMINS ,THERAPEUTIC TAB PO SCH (09:33)
[2021-07-23] MEDS: cefTRIAXone/NS 1 GM/50 ML 1 GM/50 ML BAG IV SCH (09:33)
[2021-07-23] MEDS: HEPARIN 5,000 UNIT/1 ML VIAL SUB-Q SCH (09:36)
[2021-07-23] MEDS ORDERED: SODIUM BICARBONATE 650 MG TAB PO SCH (11:00)
--- NOTE | 2021-07-23 13:57 | Consultation ---
History of Present Illness - Reason for Consult Consult date: 07/23/21 E.coli bacteremia Requesting physician: MARYSLO CLARKE - History of Present Illness The patient is a 76-year-old female with hypertension admitted with generalized weakness and change in her mental status. According to her family, she was lethargic and lying around in bed for a couple of days. Hence she was brought here. Had a fever of 103 F on admission, afebrile since then. Started on empiric antibiotics, chest x-ray showed possible pneumonia. UA showed significant pyuria. Her blood and urine cultures grew E. coli. She has been improving and feels like she is back at her baseline. Denies any complaints at this time. Review of Systems: General: Fever on admission, none since then HEENT: no new visual disturbance Respiratory: No cough, sputum, hemoptysis or shortness of breath Cardiovascular: No chest pain, syncope Gastrointestinal: No nausea, vomiting or diarrhea Genitourinary: No dysuria or hematuria Musculoskeletal: No new or worsening neck pain or back pain Neurologic: No headaches, seizures Hematologic: No easy bruising or bleeding Endocrine: No night sweats or acute weight loss Skin: negative for rash, jaundice Psychiatric: No suicidal or homicidal ideation Past History Past Medical History: hypertension Past Surgical History: No surgical history Social history: lives with family. denies: smoking, alcohol abuse, prescription drug abuse, IV drug use, full code Medications and Allergies Allergies Allergy/AdvReac Type Severity Reaction Status Date / Time No Known Allergies Allergy Verified 07/20/21 19:01 Home Medications Medication Instructions Recorded Confirmed Last Taken Type Ferrous Sulfate [Ferrous Sulfate 324 mg PO QDAY 30 Days tablet. 06/26/21 07/22/21 Unknown Rx 324 MG] Active Meds: Active Medications Acetaminophen (Acetaminophen 325 Mg Tab) 650 mg PO Q4H PRN PRN Reason: Pain MILD(1-3)/Fever >100.5/[facility]ST[facility] Al Hydrox/Mg Hydrox/Simethicone (Alum-Mag Hydroxide-Simethicone [id number]/5ml Oral Liqd 30 Ml) 30 ml PO Q4H PRN PRN Reason: Indigestion Famotidine (Famotidine 10 Mg Tab) 10 mg PO BID [facility] Last Admin: 07/23/21 09:33 Dose: 10 mg Documented by: Ferrous Sulfate (Ferrous Sulfate 325 Mg Tab) 325 mg PO TID [facility] Last Admin: 07/23/21 13:23 Dose: 325 mg Documented by: Heparin Sodium (Porcine) (Heparin 5,000 Unit/1 Ml Vial) 5,000 unit SUB-Q Q12HR [facility] Last Admin: 07/23/21 09:36 Dose: 5,000 unit Documented by: Hydralazine HCl (Hydralazine 20 Mg/1 Ml Inj) 5 mg IV Q4H PRN PRN Reason: Hypertension Last Admin: 07/23/21 07:11 Dose: 5 mg Documented by: Hydromorphone HCl (Hydromorphone 1 Mg/1 Ml Inj) 0.25 mg IV Q4H PRN PRN Reason: Pain, Moderate (4-6) Ceftriaxone Sodium (Rocephin/Ns 1 Gm/50 Ml) 1 gm in 50 mls @ 100 mls/hr IV Q24HR [facility]; Protocol Last Admin: 07/23/21 09:33 Dose: 100 mls/hr Documented by: Sodium Chloride (Nacl 0.9% 1000 Ml) 1,000 mls @ 75 mls/hr IV DIRECT [facility] Last Admin: 07/22/21 22:32 Dose: 75 mls/hr Documented by: Azithromycin (Zithromax/Ns) 500 mg in 250 mls @ 250 mls/hr IV QHS [facility] Stop: 07/24/21 22:59 Last Admin: 07/22/21 22:18 Dose: 250 mls/hr Documented by: Magnesium Hydroxide (Magnesium Hydroxide (Mom) Oral Liqd Udc) 30 ml PO Q4H PRN PRN Reason: Constipation Multivitamins (Multivitamins ,Therapeutic Tab) 1 each PO QDAY [facility] Last Admin: 07/23/21 09:33 Dose: 1 each Documented by: Naloxone HCl (Naloxone 0.4 Mg/1 Ml Inj) 0.1 mg IV Q2MIN PRN PRN Reason: Res Rate </= 8 or 02 SAT < 92% Ondansetron HCl (Ondansetron 4 Mg/2 Ml Inj) 4 mg IV Q8H PRN PRN Reason: Nausea And Vomiting Oxycodone/Acetaminophen (Oxycodone /Acetaminophen 5-325mg Tab) 1 tab PO Q6H PRN PRN Reason: Pain, Moderate (4-6) Last Admin: 07/21/21 12:34 Dose: 1 tab Documented by: Senna (Sennosides 8.6 Mg Tab) 8.6 mg PO Q12HR PRN PRN Reason: Constipation Sodium Bicarbonate (Sodium Bicarbonate 650 Mg Tab) 650 mg PO BID [facility] Last Admin: 07/23/21 09:33 Dose: 650 mg Documented by: Sodium Chloride (Sodium Chloride 0.9% 10 Ml Flush Syringe) 10 ml IV BID [facility] Last Admin: 07/23/21 09:33 Dose: 10 ml Documented by: Sodium Chloride (Sodium Chloride 0.9% 10 Ml Flush Syringe) 10 ml IV PRN PRN PRN Reason: LINE FLUSH Physical Examination - Physical Exam Narrative exam: Physical Exam: Constitutional: Alert, cooperative. No acute distress Head, Ears, Nose: Normocephalic, atraumatic. External ears, nose normal Eyes: Conjunctivae/corneas clear. No icterus. No ptosis. Neck: Supple, no meningeal signs Cardiovascular: S1, S2 + Respiratory: Good air entry, clear to auscultation bilaterally GI: Soft, non-tender; bowel sounds normal. No peritoneal signs Musculoskeletal: No pedal edema, no cyanosis. Skin: No rash or abscess Hem/Lymphatic: No palpable cervical or supraclavicular nodes. No lymphangitis Psych: Mood ok. Affect normal Neurological: Awake, alert, oriented. No gross abnormality - Constitutional Vitals: Vital Signs Temp Pulse Resp BP Pulse Ox 99.1 F 85 18 169/97 100 07/23/21 12:45 07/23/21 12:45 07/23/21 12:45 07/23/21 12:45 07/23/21 12:45 Temperature -Last 24 Hours Temperature 99.1 F Temperature 98.8 F Results - Labs CBC & Chem 7: 07/23/21 07:50 07/23/21 07:50 Labs: Abnormal lab results 07/20/21 07/23/21 07/23/21 Range/Units 19:28 07:50 07:50 WBC 18.4 H (4.5-11.0) K/mm3 RBC 3.28 L (3.65-5.03) M/mm3 Hgb 6.1 L 9.6 L (10.1-14.3) gm/dl Hct 20.2 L (30.3-42.9) % MCV 62 L 69 L (79-97) fl MCH 19 L 20 L (28-32) pg MCHC 29 L (30-34) % RDW 20.6 H 28.5 H (13.2-15.2) % Plt Count 615 H 509 H (140-440) K/mm3 Lymphocytes % (Manual) 2.0 L (13.4-35.0) % Seg Neutrophils # Man 18.0 H (1.8-7.7) K/mm3 Lymphocytes # (Manual) 0.4 L (1.2-5.4) K/mm3 Chloride 107.6 H (98-107) mmol/L Carbon Dioxide 16 L (22-30) mmol/L Calcium 8.0 L (8.4-10.2) mg/dL - Imaging and Cardiology Chest x-ray: report reviewed, image reviewed (i don't see much of a pneumonia) Assessment and Plan Cultures: 07/20/2021 blood culture: E. coli 07/20/2021 urine culture: E. coli A/P: 76-year-old female with hypertension admitted with: #Sepsis secondary to E. coli bacteremia from UTI. I do not see much of a pn eumonia on the chest x-ray. #Reactive thrombocytosis: Probably from sepsis, improving. #Acute encephalopathy: Improved, likely secondary to sepsis and UTI. Recs: -Okay for discharge on 6 more days of PO cefdinir 300 mg twice daily Discussed with Dr. Yoly Christine MD, FACP, [facility] O: [phone] F: [phone]
--- NOTE | 2021-07-23 14:12 | Discharge Summary ---
Providers - Providers Date of Admission: 07/21/21 16:09 Attending physician: MARYSOL CLARKE MD 07/20/21 22:46 Speech Therapy Evaluation and Treat [CONS] Routine Reason For Exam: weakness 07/20/21 22:47 Speech Therapy Evaluation and Treat [CONS] Routine Reason For Exam: weakness 07/21/21 06:16 Physical Therapy Evaluation and Treat [CONS] Routine Comment: Reason For Exam: ADL impaired 07/21/21 06:17 Occupational Therapy Evaluate and Treat [CONS] Routine Comment: Reason For Exam: Impaired ADL 07/23/21 07:22 Consult to Physician [CONS] Routine Comment: Consulting Provider: DAPHNEY FRY Physician Instructions: Reason For Exam: sepsis with Ecoli bactremia Primary care physician: [employer] Hospitalization Reason for admission: Sepsis Condition: Stable Hospital course: This is a 76-year-old female seen in ED at bedside. She presents to ED with weakness and altered mental status. Per EMS, family reported that patient has been lethargic and laying around for couple of days. Urinary incontinence is reported. EMS states patient had a fever of 102. On assessment, patient is awake appears mildly confused, was unable to get most of the pertinent information. she denies chest pain, nausea vomiting, and abdominal pain at this time of assessment. I reviewed medication record, history, and vital signs. Patient has UTI. Chest x-ray shows pneumonia. Patient started on antibiotics. Patient reports she has received her COVID-19 vaccine Sepsis secondary to E. coli bacteremia. Patient meets criteria given the tachycardia, fever and diagnosis of pneumonia/UTI. Left lower lobe pneumonia. Chest x-ray reveals left-sided pneumonia. Acute cystitis secondary to E. coli Reactive thrombocytosis toxic metabolic encephalopathy. Etiology secondary to above. Anemia. Etiology is unknown. Hypokalemia. Metabolic acidosis Hypophosphatemia 07/21/2021. Continue IV antibiotics and follow-up blood and urine cultures. We Will transfuse 2 units of PRBCs for anemia. Check iron studies, reticulocyte count and LDH. Check Hemoccult of stool. Replete potassium for hypokalemia. 07/22: Patient is awake alert bit confused hemoglobin is improved posttransfusion labs indicative of hemolysis although will recommend an outpatient GI evaluation considering the degree of blood loss. No rectal bleed reported by staff. Will replace potassium and phosphorus. And anticipate discharge in a.m.. UTI/acute cystitis secondary to E. coli which is pansensitive. Will change to Levaquin today for better management. Plan for discharge in a.m. discussed with case management 07/23: Patient seen and examined today clinically stable ready for discharge discussed with ID and recommended to be discharged on cefdinir. Also informed insurance company for outpatient set up appointment. Disposition: HOME HEALTH CARE SERVICE Final Discharge Diagnosis (Prints w/discharge instructions): Sepsis secondary to E. coli bacteremia Time spent for discharge: 35-minute Core Measure Documentation - Palliative Care Palliative Care/ Comfort Measures: Not Applicable - Core Measures Any of the following diagnoses?: none Exam - Physical Exam Narrative exam: General appearance: Present: no acute distress, well-nourished - EENT Eyes: Present: PERRL, EOM intact ENT: hearing intact, clear oral mucosa, dentition normal - Neck Neck: Present: supple, normal ROM - Respiratory Respiratory effort: normal Respiratory: bilateral: CTA - Cardiovascular Rhythm: regular Heart Sounds: Present: S1 & S2. Absent: gallop, rub - Extremities Extremities: no ischemia, No edema, Full ROM - Abdominal General gastrointestinal: soft, non-tender, non-distended, normal bowel sounds - Integumentary Integumentary: Present: clear, warm, dry - Neurologic Neurologic: CNII-XII intact, moves all extremities - Constitutional Vitals: Temp Pulse Resp BP Pulse Ox 99.1 F 85 18 169/97 100 07/23/21 12:45 07/23/21 12:45 07/23/21 12:45 07/23/21 12:45 07/23/21 12:45 Plan Activity: advance as tolerated, fall precautions Diet: low fat Special Instructions: record daily weights, record daily BP diary Follow up with: PRIMARY CARE, [Primary Care Provider] - 7 Days Prescriptions: Cefdinir 300 mg PO BID #12 capsule Ferrous Sulfate [Feosol 325 MG tab] 325 mg PO TID #90 tablet Multivitamin Tab [Multiple Vitamin TAB (Theragran)] 1 each PO QDAY #30 tablet Famotidine [Pepcid] 10 mg PO BID #60 tablet Sodium Bicarbonate 650 mg PO BID #30 tablet
[2021-07-23 18:54] VITALS: BP 171/99
== END 2021-07-23 20:00 | disposition home health service (06) | DRG 871 ==
LOC: ED 18:51 → 3A 22:40 → OBSVTOIN 07-21 16:09
PROVIDERS: ADMIT Internal Medicine Geriatric Medicine; ATTEND Internal Medicine
PROC: 30233N1 Transfusion of Nonautologous Red Blood Cells into Peripheral Vein, Percutaneous Approach (ICD-10-PCS; principal; 2021-07-21)
DX: A41.51 Sepsis due to Escherichia coli [E. coli] (principal); G92.8 Other toxic encephalopathy; J18.1 Lobar pneumonia, unspecified organism; D64.9 Anemia, unspecified; M81.0 Age-related osteoporosis without current pathological fracture; J44.9 Chronic obstructive pulmonary disease, unspecified; M19.90 Unspecified osteoarthritis, unspecified site; E87.6 Hypokalemia; E83.39 Other disorders of phosphorus metabolism; N30.90 Cystitis, unspecified without hematuria; B96.20 Unspecified Escherichia coli [E. coli] as the cause of diseases classified elsewhere
CPT/HCPCS: 36415; 71045; 80048; 80076; 81001; 82140; 82607; 82747; 83036; 83550; 83615; 83735; 84100; 85007; 85025; 85027; 85045; 86850; 86900; 86901; 86920; 87040; 87076; 87086; 87186; G0378; J3490; J7510; Q0162; J0360; J0456; J0692; J0696; J1644; J7030; J7040; P9016